=== PATIENT | male | born 1960 | race Caucasian/White ===

== ENCOUNTER 2021-07-28 03:31 | Emergency (ER) | payer SELFPAY ==
[2021-07-28 03:43] VITALS: PULSE 93; BMI 31.8
[2021-07-28] MEDS ORDERED: IBUPROFEN 600 MG TABLET (FP) PO ONE (03:50)
[2021-07-28 04:10] VITALS: BP 125/86
== END 2021-07-28 04:16 | disposition home or self-care (01) ==
LOC: FER 03:31
DX: S60.811A Abrasion of right wrist, initial encounter (principal); S80.211A Abrasion, right knee, initial encounter; V48.4XXA Person boarding or alighting a car injured in noncollision transport accident, initial encounter
CPT/HCPCS: 99283-25